=== PATIENT | male | born 1955 | race Caucasian/White ===

== ENCOUNTER 2017-05-20 16:32 | Emergency (ER) | payer OTHER ==
[2017-05-20] MEDS ORDERED: NEXIUM (16:42)
[2017-05-20] MEDS ORDERED: VALTREX500 MG (16:42)
[2017-05-20] MEDS ORDERED: ZYRTEC (16:42)
[2017-05-20] MEDS ORDERED: PRAVACHOL (16:42)
[2017-05-20] MEDS ORDERED: HCTZ (16:42)
[2017-05-20] MEDS ORDERED: ZOLOFT (16:42)
[2017-05-20] MEDS ORDERED: EZETIMIBE10 MG (16:42)
[2017-05-20] MEDS ORDERED: ATACAND4 MG (16:42)
[2017-05-20] MEDS ORDERED: SINGULAIR (16:42)
[2017-05-20] MEDS ORDERED: CELEBREX (16:43)
[2017-05-20 17:57] LABS: BASOPHIL% 0.4 % (0-2.5); EOSINOPHIL% 0.6 % (0.0-7.0); HEMOGLOBIN 12.6 gm/dL (13.0-16.0); LYMPHOCYTE% 14.9 % (17.0-45.0); MEAN CELL VOLUME 87.9 FL (83-96); MEAN CORPUSCULAR HEMOGLOBIN 29.9 PG (28-34); MEAN PLATELET VOLUME 7.5 FL (6.5-11.5); MONOCYTE# 0.8 X10e3 (0-1.0); MONOCYTE% 12.9 % (3.0-12.0); NEUTROPHIL# 4.7 X10e3 (1.5-7.1); NEUTROPHIL% 71.2 % (40-75); PLATELET COUNT 232 X10e3 (140-420); RED BLOOD COUNT 4.21 X10e (3.90-5.60); RED CELL DISTRIBUTION WIDTH 14.3 % (11.0-15.5); WHITE BLOOD COUNT 6.6 X10e3 (4.0-10.5)
[2017-05-20 18:14] LABS: BUN/CREATININE RATIO 21.11; CALCIUM SERUM 8.6 mg/dL (8.4-10.2); CREATININE SERUM 0.9 mg/dL (0.6-1.4); GLOM FILT RATE Estimated 92.5 mL/min (>60); POTASSIUM 3.5 mmol/L (3.5-5.1)
[2017-05-20 18:17] LABS: DIFF IND NO
== END 2017-05-20 18:41 | disposition home or self-care (01) ==
LOC: SED 16:32
PROVIDERS: Emergency Medicine
DX: L03.116 Cellulitis of left lower limb (principal); I10 Essential (primary) hypertension; Z88.8 Allergy status to other drugs, medicaments and biological substances
CPT/HCPCS: 36415; 80048; 85025; 96365; 99283